=== PATIENT | male | born 1975 | race Caucasian/White ===

== ENCOUNTER 2020-03-11 05:04 | Emergency (ER) | payer SELFPAY ==
[~2020-03-11] VITALS: Ht 177.8 cm; Wt 110.2 kg
[2020-03-11 05:15] VITALS: BP 133/101; Ht 177.8 cm; Wt 110.2 kg
== END 2020-03-11 07:10 | disposition home or self-care (01) ==
LOC: ED 05:04
DX: R60.9 Edema, unspecified (principal)